=== PATIENT | male | born 1980 | race Hispanic/Latino ===

== ENCOUNTER 2018-02-19 11:01 | Emergency (ER) | payer BC ==
[~2018-02-19] VITALS: Ht 175.3 cm; Wt 88.5 kg
[2018-02-19 12:21] LABS: CLARITY,URINE CLEAR (CLEAR); COLOR,URINE YELLOW (YELLOW); KETONES,URINE NEGATIVE (NEGATIVE); LEUKOCYTE ESTERASE ,URINE NEGATIVE (NEGATIVE); NITRITE,URINE NEGATIVE (NEGATIVE); PROTEIN,URINE DIPSTICK NEGATIVE (NEGATIVE)
[2018-02-19 12:22] LABS: BILIRUBIN,URINE NEGATIVE (NEGATIVE); URINE UROBILINOGEN 0.2 mg/dL (0.2 - 1)
[2018-02-19] MEDS ORDERED: KETOROLAC TROMETHAMINE 60 MG/2 ML VIAL IM ONE (12:45)
[2018-02-19 13:07] VITALS: BP 148/91
== END 2018-02-19 13:15 | disposition home or self-care (01) ==
LOC: ER 11:01
DX: M54.41 Lumbago with sciatica, right side (principal)
CPT/HCPCS: 81001; 99283; J1885